=== PATIENT | male | born 1955 | race African-American/Black ===

== ENCOUNTER 2017-01-12 01:31 | Emergency (ER) | payer OTHER ==
[~2017-01-12] VITALS: Ht 182.9 cm; Wt 77.2 kg
[2017-01-12] MEDS ORDERED: PREDNISONE 20MG TABLET PO STA (02:47)
[2017-01-12] MEDS ORDERED: ALBUTEROL (0.083%) 2.5MG/3ML NEB HHN STA (02:47)
[2017-01-12] MEDS ORDERED: IPRATROPIUM BROMIDE (0.02%) 0.5MG/2.5ML NEB HHN STA (02:47)
[2017-01-12 06:33] VITALS: BP 155/87
== END 2017-01-12 06:36 | disposition home or self-care (01) ==
LOC: ER 01:31 → CANBEDREQ 06:50
DX: J44.9 Chronic obstructive pulmonary disease, unspecified (principal); R00.0 Tachycardia, unspecified; I10 Essential (primary) hypertension; F17.210 Nicotine dependence, cigarettes, uncomplicated; F19.10 Other psychoactive substance abuse, uncomplicated
CPT/HCPCS: 71010; 99283; J7512; J7611; Z7610